=== PATIENT | male | born 1965 | race Caucasian/White ===

== ENCOUNTER 2020-09-22 19:51 | Outpatient (REF) | payer MEDICARE, SELFPAY ==
[2020-09-23 13:17] LABS: COVID-19 RT-PCR UVMMC Result Negative (Negative)
== END 2020-09-22 19:52 | disposition home or self-care (01) ==
LOC: NCHCN 19:51
PROVIDERS: Visit Provider Physician Assistant
DX: Z20.822 Contact with and (suspected) exposure to COVID-19 (principal)
CPT/HCPCS: U0003; U0005

== ENCOUNTER 2021-01-06 14:55 | Outpatient (REF) | payer MEDICARE, SELFPAY ==
[2021-01-06 18:52] LABS: Bacteria Many HPF (Negative); C & S Indicated? C&S Done As Ordered; Casts Negative LPF (Negative); Crystals Negative HPF (Negative); Epithelial Cells Rare HPF (Negative); Mucus Trace (Negative); RBC >50 HPF (0-2); WBC 20-50 HPF (0-5)
== END 2021-01-06 14:56 | disposition home or self-care (01) ==
LOC: NCHCN 14:55
PROVIDERS: Visit Provider Physician Assistant
DX: R31.9 Hematuria, unspecified (principal)
CPT/HCPCS: 87077; 81015; 87086; 87186

== ENCOUNTER 2025-02-18 17:36 | Outpatient (REF) | payer MEDICARE, SELFPAY ==
[2025-02-19 20:09] LABS: Hepatitis C Ab w Rflx HCV PCR Negative (Negative)
== END 2025-02-18 17:37 | disposition home or self-care (01) ==
LOC: NCHCN 17:36
PROVIDERS: PCP Physician Assistant; Visit Provider Physician Assistant
DX: Z11.59 Encounter for screening for other viral diseases (principal)
CPT/HCPCS: 86803

== ENCOUNTER → 2025-03-18 12:07 | Outpatient (BNVA) | payer MEDICARE, SELFPAY | PROVIDERS: PCP Physician Assistant; Referring Provider Physician Assistant; Visit Provider Nurse Practitioner Adult Health | DX: G43.009 Migraine without aura, not intractable, without status migrainosus (principal) | CPT/HCPCS: 99214 ==

== ENCOUNTER 2025-05-05 09:23 | Outpatient (REF) | payer MEDICARE, MEDICAID, SELFPAY ==
[2025-05-05 19:51] LABS: ALT 28 U/L (16-63); AST 22 U/L (15-37); Albumin 3.4 g/dL (3.4-5.0); Alkaline Phosphatase 86 U/L (46-116); Anion Gap 7.7 mmol/L (3-11); BUN 13 mg/dL (7-18); Bilirubin, Total 0.4 mg/dL (0.2-1.0); CO2 28.3 mmol/L (21.0-32.0); Calcium 8.8 mg/dL (8.5-10.1); Chloride 105 mmol/L (98-107); Estimated GFR 63.68 (mL/min/1.73m2); Glucose 101 mg/dL (74-106); LDL CHOLESTEROL 113 mg/dL (<100); Potassium 4.0 mmol/L (3.5-5.1); Sodium 141 mmol/L (136-145); Total Protein 7.1 g/dL (6.4-8.2)
[2025-05-05 19:57] LABS: Hemoglobin A1C 5.6 % (<5.7)
== END 2025-05-05 09:24 | disposition home or self-care (01) ==
LOC: NCHCN 09:23
PROVIDERS: PCP Physician Assistant; Visit Provider Physician Assistant
DX: I10 Essential (primary) hypertension (principal); R73.03 Prediabetes
CPT/HCPCS: 80053; 83721; 83036